=== PATIENT | female | born 1990 | race Caucasian/White ===

== ENCOUNTER 2019-12-23 16:33 | Emergency (ER) | payer OTHER, SELFPAY ==
[2019-12-23 16:49] VITALS: BP 131/89; PULSE 100; RESP 16; TEMP 37.1; O2SAT 99
--- NOTE | 2019-12-23 16:59 | ED.SKABFB ---
HPI - Skin/Abscess/Foreign Bdy General Chief complaint: Skin/Abscess/Foreign Body Stated complaint: right foot abscess Time Seen by Provider: 12/23/19 16:49 Source: patient and RN notes reviewed Mode of arrival: ambulatory Limitations: no limitations History of Present Illness HPI narrative: Patient presents today complaining of an abscess to her right foot. 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 4 days ago she relapsed and shot up in her medial portion of her right foot. 3 days ago she noted redness, swelling, and pain to the injection site as well as a blister. This blister ruptured and has been draining. She has been applying Neosporin and keeping it covered. MD complaint: abscess/boil Related Data Home Medications Medication Instructions Recorded Confirmed gabapentin 12/23/19 methadone 12/23/19 metronidazole 12/23/19 Allergies Allergy/AdvReac Type Severity Reaction Status Date / Time No Known Allergies Allergy Verified 07/06/14 16:47 Review of Systems Review of Systems: Narrative: CONSTITUTIONAL: Denies body aches, fever, chills, or sweats. EYES: Denies visual changes, redness, or discharge. ENT: Denies rhinorrhea, congestion, sore throat, or otalgia. CARDIOVASCULAR: Denies chest pain, palpitations, or edema. RESPIRATORY: Denies cough or dyspnea. GASTROINTESTINAL: Denies abdominal pain, nausea, vomiting, or diarrhea. GENITOURINARY: Denies dysuria or hematuria. SKIN: Denies rash, itching. + Abscess to right foot MUSCULOSKELETAL: Denies back pain, joint pain, or myalgia. NEUROLOGIC: Denies headache, numbness, tingling, or weakness. PSYCH: Denies depression or anxiety. PMFSH Comments At time of signature, I have reviewed and agree with nursing past medical, surgical, social and family history unless otherwise noted. Please see nursing chart for further information. There is no relevant family history pertinent to the presenting complaint Exam Narrative: Exam Narrative: GENERAL: Well-appearing, well-nourished, and in no acute distress.+ Tearful HEAD: Normocephalic, atraumatic. EYES: EOMI. No redness or drainage. Conjunctivae normal. ENT: Mucous membranes pink and moist. NECK: Normal AROM. Supple. No lymphadenopathy. CHEST: No respiratory distress. EXTREMITIES: Normal range of motion. No edema. SKIN: Warm, dry, no rash. Capillary refill normal. Normal skin turgor. 5x7cm area of erythema without induration to the medial right foot. Portion of skin is very moist and macerated. This piece of skin was removed and obvious abscess wound ~3mm in diameter noted. Scant purulent yellow drainage. Tender to palpation. Sensation intact. Capillary refill normal. Pedal pulse normal. NEURO: No focal deficits. Alert and oriented x3. Gait steady. Course Vital Signs Vital signs: Vital Signs Temperature 98.7 F 12/23/19 16:49 Pulse Rate 100 12/23/19 16:49 Respiratory Rate 16 12/23/19 16:49 Blood Pressure 131/89 12/23/19 16:49 Pulse Oximetry 99 12/23/19 16:49 Temperature 98.7 F 12/23/19 16:49 Pulse Rate 100 12/23/19 16:49 Respiratory Rate 16 12/23/19 16:49 Blood Pressure 131/89 12/23/19 16:49 Pulse Oximetry 99 12/23/19 16:49 Reviewed. Pt has been instructed to follow up with her PCP regarding her elevated blood pressure today. MDM - Skin/Abscess/Foreign Bdy Differential Diagnosis Differential diagnosis: Likely abscess of skin or subcutaneous tissue, cellulitis and impetigo Critical Care Time Critical Care Time Critical Care Time: No Discharge Plan Discharge Clinical Impression: Cellulitis Qualifiers: Site of cellulitis: extremity Site of cellulitis of extremity: lower extremity Laterality: right Qualified Code(s): L03.115 - Cellulitis of right lower limb Abscess of skin or subcutaneous tissue Qualifiers: Site of cutaneous abscess: extremity Site of cutaneous abscess of extremity: foot Laterality: right Qualified Co
== END 2019-12-23 17:11 | disposition home or self-care (01) ==
PROVIDERS: Emergency Provider Nurse Practitioner
DX: L03.115 Cellulitis of right lower limb (principal); L02.611 Cutaneous abscess of right foot
CPT/HCPCS: 99213; G0463